=== PATIENT | female | born 1995 ===

== ENCOUNTER 2017-09-23 21:23 | Emergency (ER) | payer SELFPAY ==
[2017-09-23 21:43] VITALS: BP 159/88; PULSE 109; RESP 16; TEMP 98; O2SAT 100
--- NOTE | 2017-09-23 22:18 | ED PDOC ---
HPI:Nausea, Vomiting, Diarrhea Time Seen by Provider: 09/23/17 21:45 Chief Complaint (Nursing): GI Problem Additional Complaint(s): 22 year old female presents to the ED complaining of nausea and vomiting (non bloody non bilious) x1 week. The patient states that her symptoms are associated with epigastric pain which started after a few days of nausea and vomiting. patient states she has not taken anything for her symptoms. Denies dysuria, frequency, hematuria, vaginal bleeding, vaginal discharge. Patient does not remember the date of her last menstrual period and states that her last menses might have been in July. Abnormal Vaginal Bleeding: No Last Menstral Period: July : 2 Para: 0 Miscarriage: 1 Past Medical History Reviewed: Historical Data, Nursing Documentation, Vital Signs Vital Signs: Last Vital Signs Temp 98 F 09/23/17 21:41 Pulse 109 H 09/23/17 21:41 Resp 16 09/23/17 21:41 BP 159/88 H 09/23/17 21:41 Pulse Ox 100 09/23/17 21:41 - Medical History PMH: No Chronic Diseases - Surgical History Surgical History: No Surg Hx - Family History Family History: States: Unknown Family Hx - Social History Current smoker - smoking cessation education provided: No (Quit 2 weeks ago) Ex-Smoker (has not smoked in the last 12 months): No Alcohol: None Drugs: Denies - Home Medications Home Medications: Ambulatory Orders Medication Instructions Recorded Ondansetron ODT [Zofran ODT] 1 odt PO BID PRN #6 odt 04/19/15 Pantoprazole Sodium [Protonix] 20 mg PO DAILY #14 ect 04/19/15 Metoclopramide [Reglan] 1 tab PO TID PRN #20 tab 09/23/17 Multivit/Folic Acid/I 1 tab PO DAILY #100 tab 09/23/17 [ Plus] - Allergies Allergies/Adverse Reactions: Allergies Allergy/AdvReac Type Severity Reaction Status Date / Time No Known Allergies Allergy Verified 04/19/15 01:59 Review of Systems ROS Statement: Except As Marked, All Systems Reviewed And Found Negative Gastrointestinal: Positive for: Nausea, Vomiting, Abdominal Pain (epigastric). Negative for: Diarrhea Genitourinary Female: Negative for: Dysuria, Hematuria, Vaginal Discharge, Vaginal Bleeding Neurological: Positive for: Headache Physical Exam - Reviewed Nursing Documentation Reviewed: Yes Vital Signs Reviewed: Yes - Physical Exam Appears: Positive for: Non-toxic, No Acute Distress Head Exam: Positive for: ATRAUMATIC, NORMOCEPHALIC Skin: Positive for: Warm, Dry Eye Exam: Positive for: EOMI, PERRL ENT: Negative for: Pharyngeal Erythema, Tonsillar Exudate Neck: Positive for: Painless ROM, Supple Cardiovascular/Chest: Positive for: Regular Rate, Rhythm. Negative for: Murmur Respiratory: Positive for: Normal Breath Sounds. Negative for: Respiratory Distress Gastrointestinal/Abdominal: Positive for: Bowel Sounds, Soft. Negative for: Tenderness, Mass, Distended, Guarding, Rebound Back: Positive for: Normal Inspection. Negative for: Decreased ROM Extremity: Positive for: Normal ROM. Negative for: Deformity Lymphatic: Negative for: Adenopathy Neurologic/Psych: Positive for: Alert. Negative for: Motor/Sensory Deficits - ECG O2 Sat by Pulse Oximetry: 100 (RA) Pulse Ox Interpretation: Normal Medical Decision Making Medical Decision Makin Initial Impression 22 year old female presenting with nausea vomiting and benign abdominal exam Initial Plan: * Upreg * Udip * Reevaluation 2157 test performed is positive. Patient will be discharged home with reglan and vitamins and advised [facility]. Documented by Lea Saldivar acting as a scribe for Suha Henriquez MD. All medical record entries made by the Scribe were at my direction and personally dictated by me. I have reviewed the chart and agree that the record accurately reflects my personal performance of the history, physical exam, medical decision making, and the department course for this patient. I have also personally directed, reviewed, and agree with the discharge instructions and disposition. Disposition - Clinical Impression Clinical Impression: , Morning sickness - Disposition Referrals: [facility] [Outside] [facility] [Outside] () Disposition: Routine/Home Disposition Time: 22:00 Condition: GOOD Additional Instructions: PLEASE FOLLOW UP WITH A CLINIC FOR CARE BY THE END OF THE WEEK Prescriptions: Metoclopramide [Reglan] 1 tab PO TID PRN #20 tab PRN Reason: Nausea/Vomiting Multivit/Folic Acid/I [ Plus] 1 tab PO DAILY #100 tab Instructions: Morning Sickness (ED), (ED)
== END 2017-09-23 22:30 | disposition home or self-care (01) ==
LOC: H.ER 21:23
DX: O21.0 Mild hyperemesis gravidarum (principal)

== ENCOUNTER 2017-12-05 06:51 | Observation (INO) | payer OTHER ==
[2017-12-05 06:52] VITALS: BMI 25.4
[2017-12-05] MEDS ORDERED: Sodium Chloride 0.9% 1,000 ML IV STA (07:20)
--- NOTE | 2017-12-05 07:26 | ED PDOC ---
HPI: Abdomen Time Seen by Provider: 12/05/17 07:06 Chief Complaint (Nursing): Abdominal Pain Chief Complaint (Provider): Abdominal Pain History Per: Patient History/Exam Limitations: no limitations Onset/Duration Of Symptoms: Hrs (x 3), Intermittent Episodes Current Symptoms Are (Timing): Still Present Additional Complaint(s): Chika is a 22 y/o female, , 17 weeks , who presents to the ED complaining of abdominal pain that started around 4:00 this morning. Patient states she had a similar episode of this pain yesterday around the same time, but today it is much worse. She describes the pain as an intermittent cramping pain with associated vaginal bleeding and nausea. Patient vomited once in the ER. She states she has not had any care because she is scared, but she has been taking vitamins. She had an ultrasound at 12 weeks and the baby was in the right place with no ectopy. She denies dysuria, back pain, fever , chills, headache, or chest pain. PMD: None : 3 Para: 0 Miscarriage: 2 (1 , 1 miscarriage) Past Medical History Reviewed: Historical Data, Nursing Documentation, Vital Signs Vital Signs: Last Vital Signs Temp 97.8 F 12/05/17 07:01 Pulse 113 H 12/05/17 07:01 Resp 17 12/05/17 07:01 BP 125/83 12/05/17 07:01 Pulse Ox 98 12/05/17 08:32 - Medical History PMH: No Chronic Diseases - Surgical History Surgical History: No Surg Hx - Family History Family History: States: Unknown Family Hx - Social History Current smoker - smoking cessation education provided: Yes (quit 2 months ago) Alcohol: None Drugs: Denies - Immunization History Hx Tetanus Toxoid Vaccination: No Hx Influenza Vaccination: No Hx Pneumococcal Vaccination: No - Allergies Allergies/Adverse Reactions: Allergies Allergy/AdvReac Type Severity Reaction Status Date / Time No Known Allergies Allergy Verified 03/14/16 08:10 Review of Systems ROS Statement: Except As Marked, All Systems Reviewed And Found Negative Constitutional: Negative for: Fever, Chills Cardiovascular: Negative for: Chest Pain Gastrointestinal: Positive for: Nausea, Vomiting, Abdominal Pain Genitourinary Female: Positive for: Vaginal Bleeding. Negative for: Dysuria Neurological: Negative for: Headache Physical Exam - Reviewed Nursing Documentation Reviewed: Yes Vital Signs Reviewed: Yes - Physical Exam Appears: Positive for: Uncomfortable Cardiovascular/Chest: Positive for: Regular Rate, Rhythm. Negative for: Murmur Respiratory: Positive for: Normal Breath Sounds. Negative for: Respiratory Distress Gastrointestinal/Abdominal: Positive for: Soft, Tenderness (LLQ, superpubic area ), Guarding (voluntary, mostly on LLQ) Back: Positive for: Normal Inspection. Negative for: L CVA Tenderness, R CVA Tenderness, Vertebral Tenderness Lymphatic: Positive for: Normal Exam Neurologic/Psych: Positive for: Alert, Oriented - Laboratory Results Result Diagrams: 12/05/17 07:43 12/05/17 07:43 - ECG O2 Sat by Pulse Oximetry: 98 (RA) Pulse Ox Interpretation: Normal Medical Decision Making Medical Decision Making: Time: 7:20 Initial Impression: Threatened Initial Plan: --US OB Limited --CMP --Lipase --Urine Dip --Urinalysis --CBC --Morphine --Pepcid --Zofran --Reeval Scribe Attestation: Documented by Alvin Daniels, acting as a scribe for Dr. Patricia Almanza MD. Provider Scribe Attestation: All medical record entries made by the Scribe were at my direction and personally dictated by me. I have reviewed the chart and agree that the record accurately reflects my personal performance of the history, physical exam, medical decision making, and the department course for this patient. I have also personally directed, reviewed, and agree with the discharge instructions and disposition. 08.09a - US findings d/w Dr. Brar. Patient examined by him in the ER. Advised to send patient to L&D for delivery of fetus. Disposition - Clinical Impression Clinical Impression: , inevitable - Patient ED Disposition Is Patient to be Admitted: Yes Doctor Will See Patient In The: Hospital - Disposition Disposition: Transfer of Care Disposition Time: 11:45 Condition: GUARDED Forms: [facility] (Bulgarian) - Pt Status Changed To: Hospital Disposition Of: Observation
[2017-12-05] MEDS ORDERED: Morphine 4 MG/ML VIAL ONE (07:29)
[2017-12-05 07:57] LABS: SQUAMOUS EPITHIAL 3 /hpf (0-5); URINE BILIRUBIN NEGATIVE (NEGATIVE); URINE BLOOD MODERATE (NEGATIVE); URINE CLARITY CLOUDY (Clear); URINE COLOR YELLOW (YELLOW); URINE GLUCOSE (UA) >=500 mg/dL (Normal); URINE LEUKOCYTE ESTERASE LARGE Leu/uL (Negative); URINE PROTEIN NEGATIVE (NEGATIVE); URINE UROBILINOGEN 0.2-1.0 mg/dL (0.2-1.0)
[2017-12-05 08:02] LABS: ALB/GLOB RATIO 1.1 (1.0-2.1); ALBUMIN 4.1 g/dL (3.5-5.0); ALT/SGPT 36 U/L (9-52); AST/SGOT 23 U/L (14-36); BLOOD UREA NITROGEN 5 mg/dl (7-17); CALCIUM 9.6 mg/dL (8.4-10.2); GFR AFRICAN-AMERICAN > 60; GFR NON-AFRICAN AMERICAN > 60; LIPASE 45 U/L (23-300)
[2017-12-05 08:06] LABS: BASO % 0.1 % (0.0-2.0); EOS % 0.1 % (0.0-4.0); HEMOGLOBIN 13.4 g/dL (12.0-16.0); LYMPH # 1.5 K/uL (1.0-4.3); LYMPH % 8.8 % (20.0-40.0); MEAN CELL VOLUME 85.7 fl (81.0-99.0); MEAN CORPUSCULAR HGB CONC 33.8 g/dL (33.0-37.0); MEAN PLATELET VOLUME 9.8 fl (7.2-11.7); MONO # 0.7 K/uL (0.0-0.8); MONO % 4.3 % (0.0-10.0); NEUT # 14.7 K/uL (1.8-7.0); NEUT % 86.7 % (50.0-75.0); NRBC % 0.1 % (0.0-0.0); PLATELET COUNT 231 K/uL (130-400); RBC 4.63 Mil/uL (3.80-5.20); RED CELL DISTRIBUTION WIDTH 13.3 % (11.5-14.5)
--- NOTE | 2017-12-05 11:56 | US ---
PROCEDURE: OB Pelvic Ultrasound HISTORY: 17 weeks by h/o; cramp and slight bleeding LMP: 08/05/2017 COMPARISON: None available. FINDINGS: UTERUS: Gestational sac: Single intrauterine gestation. Heart rate: 146 bpm. age (Ultrasound estimated): 17 weeks 1 day 1 week 1 day. The age by LMP is 17 weeks 3 days. motion present. Kyra-gestational hemorrhage: None. Placenta: Wraps rightwardly from anterior to posterior. The posterior inferior edge of the placenta is greater than 2 cm from the opening cervix CERVIX: Measures 1.2 cm long and is considered near completely opened The low uterine segment/ cervical level pocket of amniotic fluid through which the head appears to be progressing is 3.2 x 4.1 cm. Amniotic fluid pockets elsewhere appears smaller OTHER FINDINGS: Neither ovary is visualized. No free fluid seen. IMPRESSION: Single intrauterine gestation in vertex presentation with cardiac activity. . age by ultrasound is approximately 17 weeks 1 day 1 week 1 day. This is concordant with the gestational age by LMP. The exam was done on a nonemergent basis and as a result is limited. Assessment for anatomy was not possible. During the exam, the head was progressing towards the cervix. Based on these images- an impending delivery needs to be considered. These findings were directly discussed with Dr. Almanza in the emergency room at approximately 11:34 a.m. on 12/05/2017 The placenta wraps rightwardly from anterior to posterior. The posterior inferior edge of the placenta is greater than 2 cm from the opening cervix .
[2017-12-05] MEDS ORDERED: Nalbuphine 20 mg/ml Inj (1 ml) IVP PRN (12:31)
[2017-12-05] MEDS ORDERED: Oxytocin 30 units/LR 500ML 30 U/500 ML BAG IV ONE (12:33)
[2017-12-05] MEDS ORDERED: Lactated Ringer's 1,000 ML IV SCH (12:45)
[2017-12-05 13:17] LABS: BANDS 6 % (0-2); LYMPHOCYTE 6 % (20-50); MONOCYTE 5 % (0-10); NEUTROPHIL 83 % (42-75); PLATELET ESTIMATE NORMAL (NORMAL); TOTAL CELLS COUNTED 100
--- NOTE | 2017-12-05 14:38 | OBHP ---
Datetime: 12/05/2017 12:47 IP Adm Impression: Threatened IP Admit Plan: Admit to unit; Initiate protocol Admit Comment, IP Provider: 22 yo at 17.3 weeks GA based on LMP 08/05/17 sent to L_D from ED for ineviatable . Pt came to the ED complaining of abdominal pain that started around 4:00 t his morning. Patient states she had a similar episode of this pain yesterday around the same time, bu t today it is much worse. She describes the pain as an intermittent cramping pain with associated vag inal bleeding and nausea. US shows fetus at 17.1 weeks GA, w/ FHR @146. Cervix is near completely ope n and impending delivery needs to be considered. Pt did not seek care for this preganacy. De nies fever, chills. PNC: none Past obhx: 1 TOP in 2012 at 12 weeks of GA and 1 miscarriage at 12 weeks GA in 09/2016 Past gynhx: Denies hx STI Pmxh: denies pasthx: TOP x1 socialhx: denies EtOH, smoking or using drugs familyhx: denies hx CAD or HTN medications: pNV allergies: NKDA Assessment: 22 yo at 17.3 weeks GA admitted for inevitable . Plan: Admit to L_D IVF LABS PAIN management Case d/w on-call OB hospitalist Dr. Maykel Stein, [id number] The patient was seen with the resident and I agree with the note. The patient was seen in [facility] complaining of lower abdominal discomfort on exam patient was noted to be 4 cm fully dilat ed bulging membranes had palpable in the vagina. The patient was counseled regarding delivery at 17 w eeks we discussed extreme prematurity patient was aware that mortality was 100%. The patient was give n the opportunity to ask questions all questions answered and patient agreed to plan of care. Patient transferred to labor and delivery for delivery of 17 week fetus Extremities - PN: Normal Abdomen - PN: Normal Back - PN: Normal Lungs - PN: Normal Heart - PN: Normal Neurologic - PN: Normal HEENT - PN: Normal General - PN: Normal IP Hx Assessment: No Care EGA AdmitDate IP: 17.3 IP Chief Complaint: Vaginal bleeding; Maternal discomfort
[2017-12-05] MEDS ORDERED: Oxycodone/Acetaminophen 5/325 mg Tab PO ONE (15:04)
[2017-12-05] MEDS ORDERED: Oxycodone/Acetaminophen 5/325 mg Tab ONE (15:07)
[2017-12-05] MEDS ORDERED: Oxycodone/Acetaminophen 5/325 mg Tab PO PRN (15:44)
--- NOTE | 2017-12-05 15:56 | OBDS ---
DELIVERY PERSONNEL Delivery Doctor: Libia Brar MD Tea Bag Machine Tender: Kirstie Purcell RN MATERNAL INFORMATION Delivery Anesthesia: None Maternal Complications: Other RN Comments: 17 weeks demise Provider Comments: Patient was evaluated in the emergency room post sonogram. The time of sign out p atient noted to be 17 weeks gestation with had a fetus and vagina. Patient transferred to labor and d elivery delivered fetus at 1:42 PM male placenta delivered at 2:55 PM. The estimated blood los s was 100 mL, there were no vaginal lacerations patient tolerated procedure well LABOR SUMMARY EDC: 05/12/2018 00:00 No. Babies in Womb: 1 LABOR INFORMATION Reason for Induction: Demise Onset of Labor: 12/05/2017 04:00 Complete Dilatation: 12/05/2017 13:38 Oxytocin: N/A Group B Beta Strep: Not Done Steroids Given: None Reason Steroids Not Administered: Not Applicable MEMBRANES Membranes Rupture Method: Artificial Rupture of Membranes: 12/05/2017 13:40 Length of Rupture (hrs): 0.03 Amniotic Fluid Color: Clear Amniotic Fluid Amount: Small Amniotic Fluid Odor: Normal STAGES OF LABOR Stage 1 hrs: 9 Stage 1 min: 38 Stage 2 hrs: 0 Stage 2 min: 4 VAGINAL DELIVERY Episiotomy: None Laceration Extension: N/A Laceration Type: None BABY A INFORMATION Delivery Date/Time: 12/05/2017 13:42 Method of Delivery: Vaginal Born in Route : No : N/A Forceps: N/A Vacuum Extraction: N/A Shoulder Dystocia : No SHOULDER DYSTOCIA BABY A Delivery Date/Time: 12/05/2017 13:42 PRESENTATION/POSITION BABY A Presentation: Cephalic Cephalic Presentation: Vertex Breech Presentation: N/A INFORMATION BABY A Gestational Age at Delivery: 17.0 Gestational Status: Outcome : AB < 20 Weeks Infant Sex: Male
[2017-12-06 06:15] LABS: BASO % 0.1 % (0.0-2.0); EOS % 0.3 % (0.0-4.0); HEMOGLOBIN 10.1 g/dL (12.0-16.0); LYMPH # 1.5 K/uL (1.0-4.3); LYMPH % 14.5 % (20.0-40.0); MEAN CELL VOLUME 85.3 fl (81.0-99.0); MEAN CORPUSCULAR HEMOGLOBIN 30.2 pg (27.0-31.0); MEAN CORPUSCULAR HGB CONC 35.4 g/dL (33.0-37.0); MONO # 0.7 K/uL (0.0-0.8); MONO % 6.3 % (0.0-10.0); NEUT # 8.4 K/uL (1.8-7.0); NEUT % 78.8 % (50.0-75.0); RBC 3.35 Mil/uL (3.80-5.20); RED CELL DISTRIBUTION WIDTH 13.3 % (11.5-14.5); WHITE BLOOD COUNT 10.7 K/uL (4.8-10.8)
[2017-12-07 19:33] VITALS: BP 110/78; PULSE 95; RESP 18; TEMP 98; O2SAT 93
== END 2017-12-07 09:42 | disposition home or self-care (01) ==
LOC: H.ER 06:51 → H.ERHOLD 11:53 → MERGE 11:53 → H.L&D 12:39
PROVIDERS: ADMIT Obstetrics & Gynecology Gynecology; ATTEND Obstetrics & Gynecology Gynecology
DX: O03.9 Complete or unspecified spontaneous abortion without complication (principal); Z3A.17 17 weeks gestation of pregnancy; O21.8 Other vomiting complicating pregnancy
CPT/HCPCS: 76815; 80053; 81003; 81025; 83690; 85025; 86592; 86850; 86900; 87390; 88305; 96361; 96374; 96375; 99285; G0378; J2270; J2405; J2590; J7040; J7120